=== PATIENT | male | born 1960 | race Caucasian/White ===

== ENCOUNTER 2018-10-14 14:01 | Emergency (ER) | payer OTHER ==
[~2018-10-14] VITALS: Ht 165.1 cm; Wt 76.2 kg
[2018-10-14 14:08] VITALS: BP 146/84
--- NOTE | 2018-10-14 14:20 | NUR ---
PT BIB FRIEND C/O FORIEGN BODY IN FINGER X1 HOUR. PT HAS STAPLE IN RIGHT 2ND FINGER. PT REPORTS 6/10 NON-RADIATING SHARP PAIN IN FINGER. +CMS. NO ERYTHEMA PRESENT. EDEMA PRESENT. PT UNSURE IF HE IS UP TO DATE ON VACCINATIONS. VSS. ER TO SEE PT. MEDHX:NONE RX:NONE
--- NOTE | 2018-10-14 15:43 | NUR ---
Dr. Watts at bedside for removal of foreign body.
[2018-10-14 15:57] VITALS: BP 135/80
--- NOTE | 2018-10-14 15:57 | NUR ---
Patient discharged with v/s stable. Written and verbal after care instructions given and explained. Patient alert, oriented and verbalized understanding of instructions. Ambulatory with steady gait. All questions addressed prior to discharge. ID band removed. Patient advised to follow up with PMD. Rx of Keflex 500mg given. Patient educated on indication of medication including possible reaction and side effects. Opportunity to ask questions provided and answered.
== END 2018-10-14 15:57 | disposition home or self-care (01) ==
LOC: MED 14:01
DX: S61.230A Puncture wound without foreign body of right index finger without damage to nail, initial encounter (principal); W34.09XA Accidental discharge from other specified firearms, initial encounter; Y93.89 Activity, other specified; Y92.89 Other specified places as the place of occurrence of the external cause; Y99.8 Other external cause status
CPT/HCPCS: 73140; 90471; 90715; 99283; Q0092